=== PATIENT | male | born 1955 | race Caucasian/White ===

== ENCOUNTER → 2018-05-05 | Outpatient (CLI) | payer OTHER ==
[~2018-05-05] MED LIST: BIMOD OP; BRIM5DRO7 OS; LISI-374 PO
== END ==
LOC: LAB 11:38
PROVIDERS: ATTEND Internal Medicine Nephrology
DX: E55.9 Vitamin D deficiency, unspecified (principal); R79.89 Other specified abnormal findings of blood chemistry; I10 Essential (primary) hypertension
CPT/HCPCS: 36415; 81001; 82040; 82043; 82310; 82374; 82435; 82550; 82565; 82570; 82947; 84100; 84132; 84156; 84295; 84520

== ENCOUNTER → 2019-02-16 | Outpatient (CLI) | payer OTHER ==
[2019-02-16 11:23] LABS: PLATELET COUNT, AUTOMATED 210 K/uL (150-450)
== END ==
LOC: LAB 10:59
PROVIDERS: ATTEND Emergency Medicine
DX: I10 Essential (primary) hypertension (principal); G62.9 Polyneuropathy, unspecified
CPT/HCPCS: 36415; 82607; 83036; 85025

== ENCOUNTER → 2019-04-15 | Outpatient (CLI) | payer OTHER ==
[~2019-04-15] MED LIST changes: +CYA1000 PO
--- NOTE | 2019-04-15 10:54 | EKG ---
FACILITY: [facility] PATIENT NAME: LILIANA RILEY : [id number] MR: [id number] V: [id number] EXAM DATE: ORDERING PHYSICIAN: LIU CASTANEDA TECHNOLOGIST: YANN EDGE Test Reason : HTN Blood Pressure : / mmHG Vent. Rate : 037 BPM Atrial Rate : 037 BPM P-R Int : 188 ms QRS Dur : 096 ms QT Int : 480 ms P-R-T Axes : 067 008 019 degrees QTc Int : 376 ms Marked sinus bradycardia with sinus arrhythmia Abnormal ECG No previous ECGs available Confirmed by LIU CASTANEDA ([id number]) on 04/16/2019 1:01:16 PM Referred By: GERMAN Confirmed By:LIU CASTANEDA
--- NOTE | 2019-04-17 10:59 | RT HOLTER TEST ---
[place]AC[place] [facility] [place]IENT NAME: LILIANA RILEY : [id number] MR: [id number] V: [id number] EXAM DATE: ORDERING PHYSICIAN: LIU CASTANEDA TECHNOLOGIST: Kathryn Hook-up date: 2019-04-15 13:07:00 Duration: 23:59:00 Test Indications: BRADYCARDIA Medications: none listed [id number] QRS complexes 22 Ventricular ectopics which represent <1 % of total QRS comp. 27 Supraventricular ectopics which represent <1 % of total QRS comp. * Paced QRS complexes which represent % of total QRS comp. VENTRICULAR ECTOPY 22 Isolated 0 Bigeminal Cycles 0 Couplets 0 Runs 0 Beats in Runs * Beats LONGEST at * BPM at :: -- * Beats FASTEST at * BPM at :: -- SUPRAVENTRICULAR ECTOPY 23 Isolated 2 Couplets 0 Runs 0 Beats in Runs * Beats LONGEST at * BPM at :: -- * Beats FASTEST at * BPM at :: -- HEART RATES 26 MIN at 02:10:58 2019-04-16 44 AVG 92 MAX at 15:57:53 2019-04-15 LONGEST RR 2.440 secs at 04:45:43 2019-04-16 S-T LEVELS Channel 1 -12.800 mm MIN at 13:07:00 2019-04-15 -12.800 mm MAX at 13:07:00 2019-04-15 Channel 3 -12.800 mm MIN at 13:07:00 2019-04-15 -12.800 mm MAX at 13:07:00 2019-04-15 Rare ventricular ectopy. No couplets, triplets, or runs. Rare supraventricular ectopy with two (2) couplets. No triplets or runs. Sinus bradycardia was noted throughout the recording, but most notable during usual sleeping hours. T he bradycardia was quite profound with rates into the 25-30bpm range at times. Pauses of more than two (2) seconds were noted. Confirmed by CLYDE CINTRON ([id number] on 04/17/2019 10:54:59 AM Referred By: Overread By: CLYDE CINTRON
== END ==
LOC: LAB 10:35
PROVIDERS: ATTEND Emergency Medicine
DX: R00.1 Bradycardia, unspecified (principal); I10 Essential (primary) hypertension; R94.31 Abnormal electrocardiogram [ECG] [EKG]
CPT/HCPCS: 36415; 82310; 82374; 82435; 82565; 82947; 84132; 84295; 84520; 93225; 93226